=== PATIENT | female | born 1960 | race Two or more races ===

== ENCOUNTER → 2016-08-09 | Outpatient (REF) | payer BC | LOC: M SMT 17:01 | PROVIDERS: ATTEND Specialist | DX: R35.0 Frequency of micturition (principal) ==

== ENCOUNTER → 2017-05-06 | Outpatient (REF) | payer BC ==
[2017-05-06 17:52] LABS: INFLUENZA A AMPLIFICATION NEGATIVE (NEGATIVE); INFLUENZA B AMPLIFICATION NEGATIVE (NEGATIVE)
== END ==
LOC: M LAB REF 16:19
DX: R05 Cough (principal)

== ENCOUNTER → 2017-12-11 | Outpatient (CLI) | payer BC ==
[~2017-12-11] MED LIST: BUPIVACAINE HCL 0.5% 10 ML VIAL As Ordered; CONRAY-43 43% 50ML VIAL (Q9960) As Ordered; LIDOCAINE 1% MDV 20ML VIAL As Ordered; methylPREDNISolone SUSP 40 MG/ML (DEPO-medrol) VIAL (J1030) As Ordered
== END ==
LOC: M RADPRO 10:39
DX: M16.11 Unilateral primary osteoarthritis, right hip (principal)
CPT/HCPCS: 20610